=== PATIENT | female | born 1955 | race Caucasian/White ===

== ENCOUNTER → 2016-11-12 | Outpatient (CLI) | payer MEDICARE, BC ==
[2016-11-12] VITALS (15 sets, daily range): BP systolic 105–144; BP diastolic 63–81; PULSE 59–83
[~2016-11-12] VITALS: Ht 167.6 cm; Wt 66.8 kg
[~2016-11-12] MED LIST: ADVAIR 250/28 DISKU1 IH; ESTRASORB PO; FOLIC ACID 40400 MCG PO; GLUCOPHAGE500 MG/TAB PO; IRON325 M1 PO; LASIX 20MG TABL20 MG PO; METHADONE10 MG PO; OMEGA 31000 MG PO; PRILOSEC 20MG20 MG PO; RT SPIRIVA18 MCG IH; SPIRIVA18 MCG IH; VITAMIN C PO; VITAMIN C500 MG PO; ZOLOFT 100MG100 MG PO; ZOLOFT PO
[2016-11-12 07:46] LABS: INR 1.2 (0.8-3.0); PROTHROMBIN TIME 13.3 SECONDS (9.7-12.8)
== END ==
LOC: COL.RAD 06:48
PROVIDERS: Internal Medicine
DX: C78.7 Secondary malignant neoplasm of liver and intrahepatic bile duct (principal); C15.9 Malignant neoplasm of esophagus, unspecified